=== PATIENT | female | born 1985 | race Caucasian/White ===

== ENCOUNTER → 2021-01-22 | Outpatient (CLI) | payer MEDICARE ==
[2021-01-22 13:14] LABS: Basophils % (A) 0 %; Eosinophils # (A) 0.1 k/uL (0-0.7); Eosinophils % (A) 1 %; HCT 44.4 % (34.0-46.0); HGB 14.5 gm/dL (11.4-16.0); Lymphocytes # (A) 2.1 k/uL (1.0-4.8); Lymphocytes % (A) 29 %; MCH 32.6 pg (25.0-35.0); MCHC 32.6 g/dL (31.0-37.0); MCV 99.9 fL (80.0-100.0); Mean Platelet Volume 8.1; Monocytes # (A) 0.4 k/uL (0-1.0); Monocytes % (A) 6 %; Neutrophils # (A) 4.4 k/uL (1.3-7.7); Neutrophils % (A) 62 %; Platelet Count 227 k/uL (150-450); RBC 4.45 m/uL (3.80-5.40); RDW 12.2 % (11.5-15.5); Reticulocyte % 1.4 % (0.5-2.0)
[2021-01-22 19:23] LABS: % Iron Saturation 17.55 (12.00-45.00); Iron 53 ug/dL (50-170); Total Iron Binding Capacity 302 ug/dL (228-460)
[2021-01-22 19:32] LABS: Ferritin 84.6 ng/mL (10.0-291.0)
[2021-01-22 19:35] LABS: Folate, Serum >24.0 ng/mL
== END | disposition home or self-care (01) ==
LOC: LABWHC1 11:20
PROVIDERS: ATTEND Internal Medicine
DX: D75.89 Other specified diseases of blood and blood-forming organs (principal)
CPT/HCPCS: 36415; 82607; 82728; 82746; 83010; 83540; 83550; 85025; 85045

== ENCOUNTER → 2023-04-30 | Outpatient (CLI) | payer MEDICARE, OTHER ==
--- NOTE | 2023-04-30 16:04 | MM ---
Reason for Exam: Screening (asymptomatic). Baseline mammogram. Patient History: Menarche at age 8. Patient has no children. Currently using Hormonal Contraceptives, starting at age 13. Last menstrual period: 03/12/2023 Risk Values: Kirsty 5 year model risk: 0.6%. NCI Lifetime model risk: 12.2%. Prior Study Comparison: Patient's first Mammogram. Tissue Density: The breast tissue is heterogeneously dense. This may lower the sensitivity of mammography. Findings: Analyzed By CAD. There is no suspicious group of microcalcifications or new suspicious mass in either breast. Overall Assessment: Negative, BI-RAD 1 Management: Screening Mammogram of both breasts in [address] [facility] will attempt to contact patient to return for supplemental views and ultrasound if indicated. Patient should continue monthly self-breast exams. A clinical breast exam by your physician is recommended on an annual basis. This exam should not preclude additional follow-up of suspicious palpable abnormalities. Note on Kirsty scores and lifetime risk: 1. A Kirsty score greater than 3% is considered moderate risk. If this is the case, consider specialist referral to assess eligibility for a risk reducing agent. 2. If overall lifetime risk for the development of breast cancer is 20% or higher, the patient may qualify for future screening with alternating mammogram and breast MRI. Electronically signed and approved by: Dc Candelaria DO
== END | disposition home or self-care (01) ==
LOC: RADMAMWWP 13:40
PROVIDERS: ATTEND Obstetrics & Gynecology
DX: Z12.31 Encounter for screening mammogram for malignant neoplasm of breast (principal)
CPT/HCPCS: 77063; 77067

== ENCOUNTER → 2024-07-13 | Outpatient (CLI) | payer MEDICARE, OTHER ==
--- NOTE | 2024-07-14 10:00 | BD ---
EXAMINATION TYPE: Axial Bone Density DATE OF EXAM: 07/13/2024 CLINICAL HISTORY: 38 years old Female. ICD-10 CODE: M85.88 CHRONIC DEPO USE Height: 59 Weight: 146.5 FRAX RISK QUESTIONS: Alcohol (3 or more units per day): no Family History (Parent hip fracture): no Glucocorticoids (More than 3mos): no (Ex: prednisone, prednisolone, methylprednisolone, dexamethasone, and hydrocortisone). History of Fracture in Adulthood: no Secondary Osteoporosis: 1. Type 1 Diabetes: no 2. Hyperthyroidism: no 3. Menopause before 45: no 4. Malnutrition: no 5. Chronic liver disease: no Rheumatoid Arthritis: no Current Tobacco Use: yes RISK FACTORS HISTORY OF: Hip Fracture (Right/Left): no Spine Fracture: no History of Wrist Fracture: no Surgery to Spine/Hip(right/left)/Wrist (right/left): no MEDICATIONS: Thyroid Medications: no Osteoporosis Medications: no chronic use of depo (since age 13) EXAM MEASUREMENTS: Bone mineral densitometry was performed using the [employer] System. Bone mineral density as measured about the Lumbar spine is: ----- L1-L4(G/cm21.257 T Score Values are as follows: ----- L1: 0.0 ----- L2: 1.5 ----- L3: 0.4 ----- L4: 0.5 ----- L1-L4: 0.6 Z Score Values are as follows: ----- L1: 0.0 ----- L2: 1.5 ----- L3: 0.4 ----- L4: 0.5 ----- L1-L4: 0.6 Baseline Study Bone mineral density about the R hip (g/cm2): 1.017 Bone mineral density about the L hip (g/cm2): 1.101 T Score values are as follows: -----R Neck: -0.2 -----L Neck: -0.3 -----R Total: 0.1 -----L Total: 0.7 Z Score values are as follows: -----R Neck: 0.2 -----L Neck: 0.1 -----R Total: 0.3 -----L Total: 0.9 Baseline Study FRAX%s: The graph provided illustrates a 1.7% chance for a major osteoporotic fx and a 0.1% chance fo r the hips probability for fx in 10 years time. IMPRESSION: Normal (Values between +1 and -1 indicate normal bone mass). Consider repeating this study in 5 year s or sooner if there is some new clinical indication. NOTE: T-SCORE=SD OF THE YOUNG ADULT MEAN.
--- NOTE | 2024-07-14 11:01 | MM ---
Reason for Exam: Screening (asymptomatic). Last mammogram was performed 1 year(s) and 3 month(s) ago. Patient History: Menarche at age 8. Patient has no children. Currently using Hormonal Contraceptives, starting at age 13. Risk Values: Kirsty 5 year model risk: 0.7%. NCI Lifetime model risk: 12.1%. Prior Study Comparison: 04/30/2023 Bilateral MG 3D screening mammo w/cad, [facility]. Tissue Density: The breasts are heterogeneously dense, which may obscure small masses. Findings: Analyzed By CAD. There is no suspicious group of microcalcifications or new suspicious mass in either breast. Overall Assessment: Negative, BI-RAD 1 Management: Screening Mammogram of both breasts in 1 year. . Patient should continue monthly self-breast exams. A clinical breast exam by your physician is recommended on an annual basis. This exam should not preclude additional follow-up of suspicious palpable abnormalities. Note on Kirsty scores and lifetime risk: 1. A Kirsty score greater than 3% is considered moderate risk. If this is the case, consider specialist referral to assess eligibility for a risk reducing agent. 2. If overall lifetime risk for the development of breast cancer is 20% or higher, the patient may qualify for future screening with alternating mammogram and breast MRI. Electronically signed and approved by: Gabino Nath M.D. Radiologis
== END | disposition home or self-care (01) ==
LOC: RADMAMWWP 16:20
PROVIDERS: ATTEND Obstetrics & Gynecology
DX: Z12.31 Encounter for screening mammogram for malignant neoplasm of breast (principal); R92.333 Mammographic heterogeneous density, bilateral breasts; M85.88 Other specified disorders of bone density and structure, other site
CPT/HCPCS: 77063; 77067; 77080